=== PATIENT | male | born 1990 | race Caucasian/White ===

== ENCOUNTER 2017-08-02 21:12 | Emergency (ER) | payer BC ==
[~2017-08-02] VITALS: Ht 162.6 cm; Wt 59.9 kg
[~2017-08-02 21:12] MED LIST: BACTRIM; MOTRIN; [UNRECOGNIZED DRUG - CODE] PO; adderal
[2017-08-02 21:17] VITALS: BP_SYST 130
[2017-08-02 22:19] VITALS: BP_SYST 128
== END 2017-08-02 22:19 | disposition home or self-care (01) ==
LOC: SED 21:12
DX: S62.326A Displaced fracture of shaft of fifth metacarpal bone, right hand, initial encounter for closed fracture (principal); W22.8XXA Striking against or struck by other objects, initial encounter; Y93.89 Activity, other specified; Y92.89 Other specified places as the place of occurrence of the external cause; Y99.8 Other external cause status
CPT/HCPCS: 99284

== ENCOUNTER 2018-10-17 21:30 | Emergency (ER) | payer BC ==
[~2018-10-17] VITALS: Ht 162.6 cm; Wt 60.8 kg
[2018-10-17 21:35] VITALS: BP_SYST 118
--- NOTE | 2018-10-17 22:54 | NUR ---
Patient to ER bed 7 to gown for evaluation. Side rails up. Report given to ANYI PANDEY.
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
--- NOTE | 2018-10-17 23:10 | NUR ---
ER Dr. Wu at bedside examining patient.
[2018-10-17 23:35] VITALS: BP_SYST 110
--- NOTE | 2018-10-17 23:35 | NUR ---
Patient given written and verbal discharge instructions and verbalizes understanding. ER MD discussed with patient the results and treatment provided. Patient in stable condition. ID arm band No RX given. Patient educated on pain management and to follow up with PMD. Pain Scale 0. Opportunity for questions provided and answered. Medication side effect fact sheet provided.
== END 2018-10-17 23:35 | disposition home or self-care (01) ==
LOC: SED 21:30
DX: E04.0 Nontoxic diffuse goiter (principal); Z79.899 Other long term (current) drug therapy
CPT/HCPCS: 99281